=== PATIENT | female | born 1955 | race Caucasian/White ===

== ENCOUNTER 2019-04-23 20:13 | Inpatient (IN) | payer OTHER, MEDICAID ==
[~2019-04-23] VITALS: Ht 157.5 cm; Wt 73.5 kg
[2019-04-23 20:18] VITALS: BP_SYST 125
[2019-04-23] MEDS ORDERED: ONDANSETRON HCL 4 MG/2 ML VIAL IVP ONE ×2 (20:45→22:30)
[2019-04-23 21:13] LABS: BASOPHILS % (AUTO) 0.7 % (0.0-2.0); EOSINOPHILS % (AUTO) 0.7 % (0.0-4.0); HEMOGLOBIN 10.3 g/dL (12.0-16.0); LYMPHOCYTES # (AUTO) 1.7 K/uL (1.0-5.5); LYMPHOCYTES % (AUTO) 23.6 % (20.5-51.5); MEAN CORPUSCULAR HEMOGLOBIN 27 pg (27-31); MEAN CORPUSCULAR HGB CONC 32 % (32-36); MEAN CORPUSCULAR VOLUME 84 fL (79.0-98.0); MONOCYTES # (AUTO) 0.6 K/uL (0.0-1.0); MONOCYTES % (AUTO) 8.4 % (1.7-9.3); NEUTROPHILS # (AUTO) 4.7 K/uL (1.8-7.7); NEUTROPHILS % (AUTO) 66.6 % (40.0-70.0); PLATELET COUNT (AUTO) 357 K/uL (130-430); RED BLOOD CELL COUNT(AUTO) 3.82 MIL/uL (4.2-6.2); RED CELL DISTRIBUTION WIDTH 20.3 % (9.0-15.0)
[2019-04-23 21:49] LABS: ALBUMIN 2.1 g/dL (3.4-4.8); CALCIUM 9.3 mg/dL (8.4-11.0); CREATININE 0.57 mg/dL (0.55-1.30); POTASSIUM 3.3 mmol/L (3.5-5.1); TOTAL BILIRUBIN 0.3 mg/dL (0.0-1.0)
[2019-04-23] MEDS ORDERED: FAMOTIDINE PF 20 MG/2 ML VIAL IVP ONE (22:30)
[2019-04-23] MEDS ORDERED: NACL 0.9% 1,000 ML IV ONE (22:30)
[2019-04-23] MEDS ORDERED: PANTOPRAZOLE SODIUM 40 MG in NS 50 ML IV SCH (22:30)
[2019-04-23] MEDS ORDERED: PANTOPRAZOLE SODIUM 40 MG/VIAL (PROTONIX) ONE (22:36)
[2019-04-23 23:09] LABS: BILIRUBIN,URINE NEGATIVE (NEGATIVE); BLOOD, URINE NEGATIVE (NEGATIVE); CLARITY/URINE CLEAR (CLEAR); COLOR,URINE YELLOW (YELLOW); GLUCOSE,URINE NEGATIVE (NEGATIVE); KETONES,URINE NEGATIVE (NEGATIVE); LEUKOCYTE ESTERASE ,URINE NEGATIVE (NEGATIVE); NITRITE, URINE NEGATIVE (NEGATIVE); PROTEIN URINE 1+ (NEGATIVE); UROBILINOGEN,URINE 0.2 (0.2-1.0)
[2019-04-23] MEDS ORDERED: MORP15TA PO (23:14)
[2019-04-23] MEDS ORDERED: [UNRECOGNIZED DRUG - CODE] IV (23:14)
[2019-04-23] MEDS ORDERED: METO-290 PO (23:14)
[2019-04-23] MEDS ORDERED: AMI200 PO (23:14)
[2019-04-23] MEDS ORDERED: DILT30TA36 PO (23:14)
[2019-04-23] MEDS ORDERED: ASCO500T20 PO (23:14)
[2019-04-23] MEDS ORDERED: ACET-2165 PO (23:14)
[2019-04-23] MEDS ORDERED: SLIDING SCALE (23:14)
[2019-04-23] MEDS ORDERED: DRON5CAP2 PO (23:14)
[2019-04-23] MEDS ORDERED: ONDA4TAB5 PO (23:14)
[2019-04-23] MEDS ORDERED: LOVI40 SQ (23:14)
[2019-04-23] MEDS ORDERED: PRO40 PO (23:14)
[2019-04-23] MEDS ORDERED: METO-442 PO (23:14)
[2019-04-23] MEDS ORDERED: ZINC220T PO (23:14)
[2019-04-23] MEDS ORDERED: FLUCONAZOLE IV (23:14)
[2019-04-23] MEDS ORDERED: LORA1TAB PO (23:14)
[2019-04-23] MEDS ORDERED: POTA20TA83 PO (23:14)
[2019-04-23] MEDS ORDERED: KCL 40 mEq in 100 mL (PREMIX) 100 ML IV ONE (23:15)
[2019-04-23 23:18] LABS: BACTERIA,URINE RARE /HPF (None Seen); RBC,URINE 0-3 /HPF (0-3); WBC,URINE 0-3 /HPF (0-3)
[2019-04-23] MEDS ORDERED: *TPN PER PHARMACY XX PRN (23:30)
[2019-04-23] MEDS ORDERED: DEXTROSE 50% JECT 50 ML DISP.SYRIN IVP PRN (23:30)
[2019-04-23] MEDS ORDERED: TEMAZEPAM 15 MG CAPSULE PO PRN (23:30)
[2019-04-23] MEDS ORDERED: LORazepam 1 MG TABLET PO PRN (23:30)
[2019-04-23] MEDS ORDERED: ACETAMINOPHEN 325 MG TABLET PO PRN ×2 (23:30)
[2019-04-23] MEDS ORDERED: MORPHINE 2 MG/ML INJ. SYRINGE IVP PRN (23:30)
[2019-04-24 00:05] VITALS: BP_SYST 131
[2019-04-24 00:20] LABS: INR 1.2 (0.8-1.2); PROTHROMBIN TIME 11.9 SECS (9.5-12.5)
[2019-04-24] MEDS: PANTOPRAZOLE SODIUM 40 MG in NS 50 ML IV SCH ×4 (03:40→18:35)
[2019-04-24] MEDS ORDERED: PANTOPRAZOLE SODIUM 40 MG/VIAL (PROTONIX) ONE (03:45)
[2019-04-24] MEDS ORDERED: KCL 40 mEq in 100 mL (PREMIX) 100 ML IV ONE (04:08)
[2019-04-24] MEDS: DILTIAZEM HCL 30 MG TABLET PO SCH ×3 (05:25→21:42)
[2019-04-24] MEDS: ONDANSETRON HCL 4 MG/2 ML VIAL IVP PRN ×3 (05:25→21:09)
[2019-04-24 07:37] LABS: INR 1.2 (0.8-1.2); PROTHROMBIN TIME 12.1 SECS (9.5-12.5)
[2019-04-24 07:40] LABS: BASOPHILS # (AUTO) 0.1 K/uL (0.0-0.2); BASOPHILS % (AUTO) 0.7 % (0.0-2.0); EOSINOPHILS # (AUTO) 0.1 K/uL (0.0-0.4); EOSINOPHILS % (AUTO) 0.7 % (0.0-4.0); HEMATOCRIT 30.9 % (36-48); HEMOGLOBIN 9.8 g/dL (12.0-16.0); LYMPHOCYTES # (AUTO) 2.3 K/uL (1.0-5.5); LYMPHOCYTES % (AUTO) 27.3 % (20.5-51.5); MEAN CORPUSCULAR HEMOGLOBIN 27 pg (27-31); MEAN CORPUSCULAR HGB CONC 32 % (32-36); MEAN CORPUSCULAR VOLUME 85 fL (79.0-98.0); MONOCYTES % (AUTO) 11.3 % (1.7-9.3); NEUTROPHILS # (AUTO) 5.1 K/uL (1.8-7.7); PLATELET COUNT (AUTO) 327 K/uL (130-430); RED BLOOD CELL COUNT(AUTO) 3.64 MIL/uL (4.2-6.2); RED CELL DISTRIBUTION WIDTH 20.1 % (9.0-15.0); RETICULOCYTE COUNT 3.2 % (0.5-1.5); WHITE BLOOD COUNT (AUTO) 8.5 K/uL (4.8-10.8)
[2019-04-24 08:00] VITALS: BP_SYST 124
[2019-04-24 08:00] LABS: CALCIUM 8.5 mg/dL (8.4-11.0); THYROID STIMULATING HORMONE 1.36 uIu/mL (0.36-3.74)
[2019-04-24] MEDS ORDERED: DIATR MEGLU/DIATRIZ SOD 30 ML SOLUTION PO ONE (08:15)
[2019-04-24 08:36] LABS: CREATININE 0.67 mg/dL (0.55-1.30); FREE T4 (FREE THYROXINE) 0.3 ng/dL (0.6-1.6); POTASSIUM 4.8 mmol/L (3.5-5.1); TOTAL BILIRUBIN 0.4 mg/dL (0.0-1.0)
[2019-04-24 08:40] LABS: TOTAL IRON BIND. CAPACITY 6 ug/dL (250-450)
[2019-04-24] MEDS: DRONABINOL 2.5 MG CAPSULE PO SCH ×2 (08:40→21:08)
[2019-04-24] MEDS: AMIODARONE HCL 200 MG TABLET PO SCH ×2 (08:41→21:07)
[2019-04-24] MEDS: ASCORBIC ACID 500 MG TABLET PO SCH (08:41)
[2019-04-24] MEDS: METOPROLOL TARTRATE 50 MG TABLET PO SCH ×2 (08:41→21:08)
[2019-04-24] MEDS: METOCLOPRAMIDE HCL 10 MG/2 ML VIAL IVP PRN (08:47)
[2019-04-24 11:06] VITALS: BP_SYST 129
[2019-04-24 15:15] VITALS: BP_SYST 119
[2019-04-24] MEDS: MORPHINE 4 MG/ML INJ. SYRINGE IVP PRN ×2 (15:43→21:11)
[2019-04-24 20:00] VITALS: BP_SYST 124
[2019-04-24] MEDS ORDERED: [UNRECOGNIZED DRUG - OTHER] IV SCH ×8 (21:00)
[2019-04-24] MEDS ORDERED: SODIUM ACETATE IV SCH ×8 (21:00)
[2019-04-24] MEDS ORDERED: POTASSIUM CHLORIDE IV SCH ×8 (21:00)
[2019-04-24] MEDS ORDERED: TPN CENTRAL IV SCH ×8 (21:00)
[2019-04-24] MEDS: FAT EMULSIONS 250 ML IV SCH (21:23)
[2019-04-25] VITALS (7 sets, daily range): BP systolic 115–147
[2019-04-25] MEDS: PANTOPRAZOLE SODIUM 40 MG in NS 50 ML IV SCH ×5 (00:10→17:27)
[2019-04-25] MEDS: ONDANSETRON HCL 4 MG/2 ML VIAL IVP PRN ×3 (04:36→20:55)
[2019-04-25] MEDS: MORPHINE 4 MG/ML INJ. SYRINGE IVP PRN (04:36)
[2019-04-25] MEDS: DILTIAZEM HCL 30 MG TABLET PO SCH ×3 (05:23→20:31)
[2019-04-25] MEDS: INSULIN REGULAR, HUMAN 100 UNITS/ML, 10 ML VIAL (humuLIN R) SUBCUT PRN ×2 (05:31→12:01)
[2019-04-25 07:24] LABS: CALCIUM 8.8 mg/dL (8.4-11.0); CREATININE 0.94 mg/dL (0.55-1.30); PHOSPHORUS 3.1 mg/dL (2.7-4.5); POTASSIUM 3.4 mmol/L (3.5-5.1); TOTAL BILIRUBIN 0.5 mg/dL (0.0-1.0)
[2019-04-25] MEDS: ASCORBIC ACID 500 MG TABLET PO SCH (08:50)
[2019-04-25] MEDS: AMIODARONE HCL 200 MG TABLET PO SCH ×2 (08:50→20:32)
[2019-04-25] MEDS: METOCLOPRAMIDE HCL 10 MG/2 ML VIAL IVP PRN ×2 (08:51→23:13)
[2019-04-25] MEDS: METOPROLOL TARTRATE 50 MG TABLET PO SCH ×2 (08:51→20:32)
[2019-04-25] MEDS: DRONABINOL 2.5 MG CAPSULE PO SCH ×2 (08:51→20:32)
[2019-04-25] MEDS ORDERED: KCL 40 mEq in 100 mL (PREMIX) 100 ML IV ONE (16:15)
[2019-04-25 19:57] LABS: BASOPHILS % (AUTO) 0.5 % (0.0-2.0); EOSINOPHILS # (AUTO) 0.1 K/uL (0.0-0.4); EOSINOPHILS % (AUTO) 1.4 % (0.0-4.0); HEMATOCRIT 27.4 % (36-48); HEMOGLOBIN 8.9 g/dL (12.0-16.0); LYMPHOCYTES # (AUTO) 1.5 K/uL (1.0-5.5); LYMPHOCYTES % (AUTO) 16.9 % (20.5-51.5); MEAN CORPUSCULAR HEMOGLOBIN 27 pg (27-31); MEAN CORPUSCULAR HGB CONC 32 % (32-36); MEAN CORPUSCULAR VOLUME 85 fL (79.0-98.0); MONOCYTES # (AUTO) 0.8 K/uL (0.0-1.0); MONOCYTES % (AUTO) 9.6 % (1.7-9.3); NEUTROPHILS # (AUTO) 6.2 K/uL (1.8-7.7); NEUTROPHILS % (AUTO) 71.6 % (40.0-70.0); PLATELET COUNT (AUTO) 272 K/uL (130-430); RED BLOOD CELL COUNT(AUTO) 3.24 MIL/uL (4.2-6.2); RED CELL DISTRIBUTION WIDTH 19.9 % (9.0-15.0); WHITE BLOOD COUNT (AUTO) 8.7 K/uL (4.8-10.8)
[2019-04-25] MEDS: FAT EMULSIONS 250 ML IV SCH (20:40)
[2019-04-25] MEDS ORDERED: TPN CENTRAL 0.0001 ML, SODIUM ACETATE 35 MEQ, POTASSIUM CHLORIDE 20 MEQ, K PHOS 9 MM, M... IV SCH ×9 (21:00)
[2019-04-26] MEDS: PANTOPRAZOLE SODIUM 40 MG in NS 50 ML IV SCH ×3 (00:43→12:15)
[2019-04-26 05:00] VITALS: BP_SYST 121
[2019-04-26] MEDS: ONDANSETRON HCL 4 MG/2 ML VIAL IVP PRN (05:12)
[2019-04-26] MEDS: DILTIAZEM HCL 30 MG TABLET PO SCH ×2 (05:22→13:32)
[2019-04-26 05:50] LABS: ALBUMIN 1.7 g/dL (3.4-4.8); CALCIUM 8.3 mg/dL (8.4-11.0); CREATININE 0.71 mg/dL (0.55-1.30); PHOSPHORUS 2.5 mg/dL (2.7-4.5); TOTAL BILIRUBIN 0.3 mg/dL (0.0-1.0)
[2019-04-26 06:20] LABS: BASOPHILS % (AUTO) 0.3 % (0.0-2.0); EOSINOPHILS # (AUTO) 0.1 K/uL (0.0-0.4); EOSINOPHILS % (AUTO) 1.4 % (0.0-4.0); HEMATOCRIT 25.2 % (36-48); HEMOGLOBIN 8.2 g/dL (12.0-16.0); LYMPHOCYTES # (AUTO) 1.3 K/uL (1.0-5.5); LYMPHOCYTES % (AUTO) 16.3 % (20.5-51.5); MEAN CORPUSCULAR HEMOGLOBIN 27 pg (27-31); MEAN CORPUSCULAR HGB CONC 33 % (32-36); MEAN CORPUSCULAR VOLUME 84 fL (79.0-98.0); MONOCYTES # (AUTO) 0.7 K/uL (0.0-1.0); MONOCYTES % (AUTO) 8.2 % (1.7-9.3); NEUTROPHILS # (AUTO) 5.9 K/uL (1.8-7.7); NEUTROPHILS % (AUTO) 73.8 % (40.0-70.0); PLATELET COUNT (AUTO) 275 K/uL (130-430); RED CELL DISTRIBUTION WIDTH 19.5 % (9.0-15.0)
[2019-04-26 08:00] VITALS: BP_SYST 118
[2019-04-26] MEDS ORDERED: KCL 40 mEq in 100 mL (PREMIX) 100 ML IV ONE (08:15)
[2019-04-26] MEDS: ASCORBIC ACID 500 MG TABLET PO SCH (09:19)
[2019-04-26] MEDS: AMIODARONE HCL 200 MG TABLET PO SCH (09:19)
[2019-04-26] MEDS: METOPROLOL TARTRATE 50 MG TABLET PO SCH (09:20)
[2019-04-26] MEDS: DRONABINOL 2.5 MG CAPSULE PO SCH (09:20)
[2019-04-26] MEDS: METOCLOPRAMIDE HCL 10 MG/2 ML VIAL IVP PRN (09:20)
[2019-04-26 11:02] VITALS: BP_SYST 126
[2019-04-26 13:41] VITALS: BP_SYST 129
[2019-04-26] MEDS ORDERED: TPN CENTRAL IV SCH ×9 (21:00)
[2019-04-26] MEDS ORDERED: SODIUM ACETATE IV SCH ×9 (21:00)
[2019-04-26] MEDS ORDERED: K PHOS IV SCH ×9 (21:00)
[2019-04-26] MEDS ORDERED: [UNRECOGNIZED DRUG - OTHER] IV SCH ×9 (21:00)
[2019-04-26] MEDS ORDERED: POTASSIUM CHLORIDE IV SCH ×9 (21:00)
== END 2019-04-26 14:45 | disposition short-term general hospital (02) | DRG 377 ==
LOC: SED 20:13 → STU 22:38
PROVIDERS: ADMIT Internal Medicine; ATTEND Internal Medicine
DX: K92.2 Gastrointestinal hemorrhage, unspecified (principal); E43 Unspecified severe protein-calorie malnutrition; K56.609 Unspecified intestinal obstruction, unspecified as to partial versus complete obstruction; C56.9 Malignant neoplasm of unspecified ovary; C79.9 Secondary malignant neoplasm of unspecified site; I48.2 Chronic atrial fibrillation; G89.4 Chronic pain syndrome; D64.9 Anemia, unspecified; E87.6 Hypokalemia; F19.10 Other psychoactive substance abuse, uncomplicated; I10 Essential (primary) hypertension; E66.9 Obesity, unspecified; Z68.29 Body mass index [BMI] 29.0-29.9, adult; Z93.3 Colostomy status; Z92.21 Personal history of antineoplastic chemotherapy; Z79.899 Other long term (current) drug therapy; Z88.8 Allergy status to other drugs, medicaments and biological substances
CPT/HCPCS: 36415; 80053; 80061; 81000-TC; 82962; 83540-TC; 83550-TC; 83690-TC; 83735-TC; 84100-TC; 84439; 84443-TC; 85025; 85044-TC; 85610-TC; 85730-TC; 86886; 86900; 86901; 87081; 96361; 96374; 96375; 99285; A5061; C9113; G0378; J1815; J2270; J2405; J2765; J3475; J3480; J3490; J7050; Q0167; Q9964